=== PATIENT | female | born 1985 | race Caucasian/White ===

== ENCOUNTER 2018-10-18 04:43 | Emergency (ER) | payer MEDICAID, OTHER ==
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
[2018-10-18 06:01] VITALS: BP 116/72
== END 2018-10-18 06:03 | disposition home or self-care (01) ==
LOC: ED 04:43
DX: S20.211A Contusion of right front wall of thorax, initial encounter (principal); R07.81 Pleurodynia; R51 Headache; F17.210 Nicotine dependence, cigarettes, uncomplicated; Y04.2XXA Assault by strike against or bumped into by another person, initial encounter; Y92.9 Unspecified place or not applicable
CPT/HCPCS: 99282

== ENCOUNTER 2019-01-02 16:44 | Inpatient (IN) | payer OTHER ==
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
[2019-01-02 17:34] LABS: ABS Eosinophils 0.1 10^3/ul (0-0.6); ABS Lymphocytes 2.6 10^3/ul (1.0-4.8); ABS Monocytes 0.5 10^3/ul (0-0.8); ABS Neutrophils 4.2 10^3/ul (1.5-7.7); Eosinophil % 1.6 %; Hematocrit 45 % (35-47); Hemoglobin 15.9 g/dL (12.0-16.0); Lymphocyte % 34.5 %; Mean Corpuscular HGB Conc 35 g/dL (31-36); Mean Corpuscular Hemoglobin 31 pg (27-31); Mean Corpuscular Volume 89 fL (80-97); Mean Platelet Volume 8.1 fL (7.4-10.4); Platelet Count 208 10^3/uL (150-450); Red Blood Count 5.09 10^6 /uL (3.70-4.87); Red Cell Distribution Width 15 % (10-15); White Blood Count 7.4 10^3/uL (3.5-10.8)
[2019-01-02 17:48] LABS: ALT 24 U/L (7-52); AST 18 U/L (13-39); Albumin 4.3 g/dL (3.2-5.2); Albumin/Globulin Ratio 1.3 (1-3); Alkaline Phosphatase 61 U/L (34-104); Anion Gap 7 mmol/L (2-11); Blood Urea Nitrogen 7 mg/dL (6-24); CO2 Carbon Dioxide 27 mmol/L (22-32); Calcium 9.5 mg/dL (8.6-10.3); Chloride 107 mmol/L (101-111); EGFR Non-African American 73.6 (>60); Globulin 3.2 g/dL (2-4); Glucose 91 mg/dL (70-100); Potassium 3.5 mmol/L (3.5-5.0); Sodium 141 mmol/L (135-145); Total Protein 7.5 g/dL (6.4-8.9)
[2019-01-02 17:55] LABS: HCG Pregnancy < 0.60 mIU/mL
[2019-01-02 17:57] LABS: Urine Appearance Clear; Urine Bacteria Absent (Absent); Urine Bilirubin Negative (Negative); Urine Blood 2+ (Negative); Urine Color Yellow; Urine Glucose Negative (Negative); Urine Ketones Trace (Negative); Urine Nitrite Negative (Negative); Urine Protein Negative (Negative); Urine Red Blood Cell Trace(0-2/hpf) (Absent); Urine Specific Gravity 1.019 (1.010-1.030); Urine Squamous Epithelial Cell Present (Absent); Urine Urobilinogen Negative (Negative); Urine White Blood Cell Trace(0-5/hpf) (Absent)
[2019-01-02 18:03] LABS: Alcohol < 10 mg/dL (<10)
[2019-01-02 18:04] LABS: Urine Benzodiazepine Screen None Detected (None Detect); Urine Opiates Screen None Detected (None Detect)
[2019-01-02 21:09] LABS: HIV 4th Generation Nonreactive (Nonreactive)
[2019-01-02] MEDS ORDERED: Al Hydrox/Mg Hydrox/Simet LIQ* 30 ML UDC PO PRN (21:35)
[2019-01-02] MEDS ORDERED: diPHENhydraMINE PO* 50 MG PO PRN (21:43)
[2019-01-02] MEDS: Acetaminophen TAB* 325 MG PO PRN (22:47)
[2019-01-02] MEDS: chlorproMAZINE TAB* 25 MG PO PRN (22:49)
[2019-01-03] MEDS ORDERED: Vitamin THERAPEUTIC TAB ONE (05:32)
[2019-01-03] MEDS ORDERED: Nicotine PATCH 21 MG/24 HR* PATCH TRANSDERM SCH (09:00)
[2019-01-03] MEDS: Acetaminophen TAB* 325 MG PO PRN (09:04)
[2019-01-03 09:05] LABS: HDL Cholesterol 36.2 mg/dL
[2019-01-03] MEDS: Vitamin THERAPEUTIC TAB PO SCH (09:05)
[2019-01-03 09:17] VITALS: BP 125/72
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
[2019-01-03] MEDS: chlorproMAZINE TAB* 25 MG PO PRN (12:52)
[2019-01-03] MEDS: LORazepam TAB(*) 0.5 MG PO PRN (16:32)
[2019-01-03] MEDS ORDERED: LORazepam TAB(*) 1 MG PO SCH (21:00)
[2019-01-03] MEDS ORDERED: Nicotine Patch Removal NOTE PATCH OFF SCH (21:00)
[2019-01-04] MEDS: Acetaminophen TAB* 325 MG PO PRN (05:53)
[2019-01-04] MEDS: chlorproMAZINE TAB* 25 MG PO PRN (07:05)
[2019-01-04] MEDS: LORazepam TAB(*) 0.5 MG PO PRN ×2 (07:05→13:05)
[2019-01-04] MEDS ORDERED: chlorproMAZINE TAB* 50 MG ONE (07:20)
[2019-01-04] MEDS ORDERED: Lorazepam PYXIS KEY ONE (07:29)
[2019-01-04] MEDS ORDERED: LORazepam INJ* 2 MG/ML 1 ML VIAL ONE (07:29)
[2019-01-04] MEDS ORDERED: diPHENhydraMINE IV* 50 MG/ML 1 ml VIAL (BENADRYL) ONE ×2 (07:29→07:31)
[2019-01-04] MEDS ORDERED: chlorproMAZINE TAB* 50 MG PO ONE (07:30)
[2019-01-04] MEDS ORDERED: Lorazepam PYXIS KEY PRN (07:33)
[2019-01-04] MEDS ORDERED: diPHENhydraMINE IV* 50 MG/ML 1 ml VIAL (BENADRYL) IM ONE ×2 (07:35→08:00)
[2019-01-04] MEDS ORDERED: LORazepam INJ* 2 MG/ML 1 ML VIAL IM ONE (07:35)
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
[2019-01-04] MEDS: Nicotine* 2MG (FRUIT FLAVOR) GUM PO PRN ×2 (08:50→12:57)
[2019-01-04] MEDS ORDERED: BuPROPion XL* 150 MG TAB.XL PO SCH (09:00)
[2019-01-04] MEDS: Vitamin THERAPEUTIC TAB PO SCH (10:03)
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
[2019-01-05 15:08] LABS: Hepatitis B Surface Antigen Negative (Negative)
[2019-01-05 15:44] LABS: Hepatitis C Antibody Reactive (Negative)
== END 2019-01-04 13:25 | disposition home or self-care (01) | DRG 755 ==
LOC: ED 16:44 → BSU 22:06
PROVIDERS: ADMIT Psychiatry & Neurology Psychiatry; ATTEND Psychiatry & Neurology Psychiatry
DX: F43.10 Post-traumatic stress disorder, unspecified (principal); F33.2 Major depressive disorder, recurrent severe without psychotic features; R45.851 Suicidal ideations; F41.0 Panic disorder [episodic paroxysmal anxiety]; F14.21 Cocaine dependence, in remission; F12.21 Cannabis dependence, in remission; J45.909 Unspecified asthma, uncomplicated; B19.20 Unspecified viral hepatitis C without hepatic coma; Z62.813 Personal history of forced labor or sexual exploitation in childhood; Z81.8 Family history of other mental and behavioral disorders
CPT/HCPCS: 36415; 80053; 80061; 80307; 80320; 81003; 81015; 83036; 84702; 85025; 86803; 87086; 87340; 87389; 87522; 99222; 99238; 99285; A9270-GY; G0480; J1200; J2060

== ENCOUNTER 2019-02-05 08:07 | Emergency (ER) | payer OTHER ==
[2019-02-05 08:38] VITALS: BP 151/99
[2019-02-05] MEDS ORDERED: Acetaminophen TAB* 325 MG PO ONE (08:56)
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
== END 2019-02-05 08:46 | disposition left against medical advice (07) ==
LOC: ED 08:07
DX: T76.21XA Adult sexual abuse, suspected, initial encounter (principal); J45.909 Unspecified asthma, uncomplicated; F17.200 Nicotine dependence, unspecified, uncomplicated; Y92.003 Bedroom of unspecified non-institutional (private) residence as the place of occurrence of the external cause; Z88.8 Allergy status to other drugs, medicaments and biological substances
CPT/HCPCS: 99282; A9270-GY

== ENCOUNTER 2019-02-19 19:55 | Emergency (ER) | payer OTHER ==
[2019-02-19] MEDS ORDERED: Ondansetron INJ* 2 MG/ML VIAL IV ONE (19:59)
[2019-02-19] MEDS ORDERED: NS 0.9% 1000 ML** 1,000 ML IV ONE (19:59)
[2019-02-19] MEDS ORDERED: Albuterol 2.5 MG/3 ML NEB.SOL* (0.083%) INH ONE (19:59)
--- NOTE | 2019-02-19 20:02 | ED ---
Complex/Multi-Sys Presentation - HPI Summary HPI Summary: This pt is a 34 y/o female presenting to [facility] via EMS for nausea, vomiting, diarrhea, and dizziness today. Pt reports her symptoms began today. She notes she has been feeling chills, generalized weakness and dizziness (feeling of passing out). Pt states she has been vomiting all day and has had at least 5 episodes of diarrhea. Denies hematemesis or blood stools. Additionally reports she has a headache and a cough that began 3 days ago. Denies fever, sore throat , runny nose, dysuria, hematuria. Pt reports sick contacts, her friends. Pt took ibuprofen and Tylenol today with no relief. PMHx: asthma. Pt reports she does not have an inhaler. Pt denies drug and alcohol use but admits to smoking cigarettes. She is not currently working now. Allergic to Lamictal. Medications reviewed. Allergies noted. - History Of Current Complaint Hx Obtained From: Patient Onset/Duration: Lasting Hours, Still Present Timing: Hours Severity Currently: Moderate Location: Pain At: - head Aggravating Factor(s): nothing Alleviating Factor(s): nothing Associated Signs And Symptoms: Positive: Dizziness, Weakness, Headache, Cough, Nausea, Vomiting, Diarrhea, Other - POSITIVE: chills. NEGATIVE: hematuria, sore throat, runny nose.. Negative: Dysuria, Fever - Allergies/Home Medications Allergies/Adverse Reactions: Allergies Allergy/AdvReac Type Severity Reaction Status Date / Time haloperidol [From Haldol] Allergy Anaphylatic Verified 02/19/19 20:05 Shock lamotrigine [From Lamictal] Allergy Swelling Verified 02/19/19 20:05 Of Face,Lips,& Throat tomato Allergy GI Upset Verified 02/19/19 20:05 PMH/Surg Hx/FS Hx/Imm Hx Endocrine/Hematology History: Denies: Hx Diabetes Cardiovascular History: Denies: Hx Hypertension Respiratory History: Reports: Hx Asthma Sensory History: Reports: Hx Contacts or Glasses Denies: Hx Hearing Aid Opthamlomology History: Reports: Hx Contacts or Glasses Psychiatric History: Reports: Hx Inpatient Treatment, Hx Substance Abuse Denies: Hx Eating Disorder - Surgical History Surgical History: Yes Surgery Procedure, Year, and Place: 2 Ceasarean Sections. Cholecystectomy. - Family History Known Family History: Negative: Cardiac Disease - Social History Alcohol Use: None Alcohol Amount: clean for 7 years Hx Substance Use: Yes Substance Use Type: Reports: Marijuana Substance Use Comment - Amount & Last Used: clean for 7 years Hx Tobacco Use: Yes Smoking Status (MU): Heavy Every Day Tobacco Smoker Review of Systems Positive: Chills. Negative: Fever Negative: Sore Throat, Nasal Discharge Positive: Cough Positive: Vomiting, Diarrhea, Nausea Negative: dysuria, hematuria Neurological: Other - POSITIVE: dizziness Positive: Headache, Weakness All Other Systems Reviewed And Are Negative: Yes Physical Exam - Summary Physical Exam Summary: Constitutional: Well-developed, Well-nourished, Alert. (-) Distressed Skin: Warm, Dry HENT: Normocephalic; Atraumatic Eyes: Conjunctiva normal Neck: Musculoskeletal ROM normal neck. (-) JVD, (-) Stridor, (-) Tracheal deviation Cardio: Rhythm regular, rate normal, Heart sounds normal; Intact distal pulses; The pedal pulses are 2+ and symmetric. Radial pulses are 2+ and symmetric. (-) Murmur Pulmonary/Chest wall: Effort normal. (-) Respiratory distress, Wheezing in bilateral lung [place]. Good airway entry. Speaking in full sentences. Abd: Soft, Mild lower abdominal tenderness, (-) Distension, (-) Guarding, (-) Rebound Musculoskeletal: (-) Edema Lymph: (-) Cervical adenopathy Neuro: Alert, Oriented x3 Psych: Mood and affect Normal Triage Information Reviewed: Yes Vital Signs Reviewed: Yes Procedures - Sedation Patient Received Moderate/Deep Sedation with Procedure: No Diagnostics - Laboratory Result Diagrams: 02/19/19 20:14 02/19/19 20:14 Lab Statement: Any lab studies that have been ordered have been reviewed, and results considered in the medical decision making process. - Radiology Chest XR Radiology Interpretation Completed By: ED Physician Summary of Radiographic Findings: No acute process. Re-Evaluation - Re-Evaluation First Eval Re-Evaluation Time: 21:16 Change: Improved Comment: Pt is feeling better after breathing treatment. PO trial and then will be discharged. Complex Multi-Symp Course/Dx Course Of Treatment: Patient is here vomiting, diarrhea, cough with multiple sick contacts with her symptoms. Patient had a benign abdominal exam is overall well-appearing outside of wheezing. Patient was given a 4-year-old female with improvement in her wheezing. Patient had a CBC and CMP and lipase performed which were all unremarkable. Patient given IV fluids. Patient is discharged with an albuterol inhaler, Bentyl, Zofran. - Diagnoses Provider Diagnoses: Vomiting, Diarrhea, Wheezing, Cough Discharge ED - Sign-Out/Discharge Documenting (check all that apply): Patient Departure - Discharge home - Discharge Plan Condition: Stable Disposition: HOME Prescriptions: Albuterol HFA INHALER* [Ventolin HFA Inhaler*] 1 - 2 puff INH Q4H PRN #1 mdi PRN Reason: Wheezing Dicyclomine CAP* [Bentyl CAP*] 10 mg PO TID PRN #20 cap PRN Reason: abdominal cramping Ondansetron TAB* [Zofran 4 MG Tab*] 4 mg PO Q8HR PRN #12 tab PRN Reason: Vomiting Patient Education Materials: Acute Nausea and Vomiting (ED), Acute Diarrhea (ED ), Acute Cough (ED), Wheezing (ED) Referrals: [facility] [Outside] Additional Instructions: Take medications as prescribed. PLEASE RETURN TO EMERGENCY DEPARTMENT FOR SEVERE RIGHT LOWER ABDOMINAL PAIN, VOMITING THAT IS NOT BETTER AFTER 12 HOURS OF TAKING MEDICINE, AND IF YOU DON'T URINATE FOR 16 HOURS. Please follow up with [facility] in 1-3 days. - Billing Disposition and Condition Condition: STABLE Disposition: Home - Attestation Statements Document Initiated by Ashleigh: Yes Documenting Caydenibsalvador: Adri Oh Provider For Whom Ashleigh is Documenting (Include Credential): Arnoldo Murguia MD Scribe Attestation: Adri Avila, scribed for Arnoldo Murguia MD on 02/19/19 at 2123. Scribe Documentation Reviewed: Yes Provider Attestation: The documentation as recorded by the Adri torres accurately reflects the service I personally performed and the decisions made by , Arnoldo Murguia MD Status of Scribe Document: Viewed
[2019-02-19 20:27] LABS: ABS Eosinophils 0.1 10^3/ul (0-0.6); ABS Lymphocytes 2.6 10^3/ul (1.0-4.8); ABS Monocytes 0.5 10^3/ul (0-0.8); ABS Neutrophils 4.9 10^3/ul (1.5-7.7); Eosinophil % 1.8 %; Hematocrit 41 % (35-47); Hemoglobin 14.1 g/dL (12.0-16.0); Lymphocyte % 31.7 %; Mean Corpuscular HGB Conc 34 g/dL (31-36); Mean Corpuscular Hemoglobin 31 pg (27-31); Mean Corpuscular Volume 92 fL (80-97); Mean Platelet Volume 7.8 fL (7.4-10.4); Platelet Count 221 10^3/uL (150-450); Red Blood Count 4.49 10^6 /uL (3.70-4.87); Red Cell Distribution Width 13 % (10-15); White Blood Count 8.2 10^3/uL (3.5-10.8)
[2019-02-19 20:45] LABS: ALT 16 U/L (7-52); AST 15 U/L (13-39); Albumin 3.7 g/dL (3.2-5.2); Albumin/Globulin Ratio 1.3 (1-3); Alkaline Phosphatase 62 U/L (34-104); Anion Gap 6 mmol/L (2-11); BUN/Creatinine Ratio 9.1 (8-20); Blood Urea Nitrogen 8 mg/dL (6-24); CO2 Carbon Dioxide 27 mmol/L (22-32); Calcium 8.9 mg/dL (8.6-10.3); Chloride 107 mmol/L (101-111); EGFR African American 88.5 (>60); EGFR Non-African American 73.1 (>60); Globulin 2.8 g/dL (2-4); Glucose 150 mg/dL (70-100); Potassium 3.1 mmol/L (3.5-5.0); Sodium 140 mmol/L (135-145); Total Protein 6.5 g/dL (6.4-8.9)
[2019-02-19] MEDS ORDERED: Potassium Chlor TAB* 20 MEQ TAB.ER PO ONE (20:49)
[2019-02-19 20:51] LABS: HCG Pregnancy < 0.60 mIU/mL
[2019-02-19] MEDS ORDERED: Albuterol HFA INHALER* 8 gm MDI INH ONE (21:26)
[2019-02-19 21:35] VITALS: BP 108/62
== END 2019-02-19 21:32 | disposition home or self-care (01) ==
LOC: ED 19:55
DX: R11.10 Vomiting, unspecified (principal); R19.7 Diarrhea, unspecified; R42 Dizziness and giddiness; R06.2 Wheezing; R51 Headache; R05 Cough; F17.210 Nicotine dependence, cigarettes, uncomplicated
CPT/HCPCS: 36415; 71046; 80053; 83690; 84702; 85025; 96374; 99283; A9270-GY; J2405

== ENCOUNTER 2019-05-15 23:06 | Emergency (ER) | payer OTHER ==
--- NOTE | 2019-05-15 23:57 | ED ---
Upper Extremity Pain - HPI Summary HPI Summary: Patient complains of pain in right forearm and swelling to fingers status post surgery yesterday for right wrist fracture. Patient has cast in place. Surgery performed at [facility], secondary to fall. Patient denies new trauma, fever, cough, sore throat, CP, SOB, N/V/V abdominal pain, change in urine, change in BM. - History of Current Complaint Chief Complaint: EDGeneral Stated Complaint: SWOLLEN FINGERS PER EMS Time Seen by Provider: 05/15/19 23:22 Hx Obtained From: Patient Mechanism Of Injury: Fall From A Standing Position Onset/Duration: Started Hours Ago Timing: Constant Severity Initially: Moderate Severity Currently: Moderate Pain Location: Forearm Character: Dull, Aching, Throbbing Aggravating Factor(s): Movement Alleviating Factor(s): Nothing Associated Signs & Symptoms: Positive: Swelling, Numbness/Tingling - Allergies/Home Medications Allergies/Adverse Reactions: Allergies Allergy/AdvReac Type Severity Reaction Status Date / Time haloperidol [From Haldol] Allergy Anaphylatic Verified 02/19/19 20:05 Shock lamotrigine [From Lamictal] Allergy Swelling Verified 02/19/19 20:05 Of Face,Lips,& Throat tomato Allergy GI Upset Verified 02/19/19 20:05 PMH/Surg Hx/FS Hx/Imm Hx Endocrine/Hematology History: Denies: Hx Diabetes Cardiovascular History: Denies: Hx Hypertension Respiratory History: Reports: Hx Asthma Denies: Hx Chronic Obstructive Pulmonary Disease (COPD) History: Denies: Hx Dialysis Sensory History: Reports: Hx Contacts or Glasses Denies: Hx Hearing Aid Opthamlomology History: Reports: Hx Contacts or Glasses EENT History: Denies: Hx Deafness Neurological History: Denies: Hx Dementia Psychiatric History: Reports: Hx Inpatient Treatment, Hx Substance Abuse Denies: Hx Eating Disorder - Surgical History Surgery Procedure, Year, and Place: 2 Ceasarean Sections. Cholecystectomy. Infectious Disease History: No Infectious Disease History: Denies: Traveled Outside the [place] in Last 30 Days - Family History Known Family History: Negative: Cardiac Disease - Social History Alcohol Use: None Alcohol Amount: clean for 7 years Hx Substance Use: Yes Substance Use Type: Reports: Marijuana Substance Use Comment - Amount & Last Used: clean for 7 years Hx Tobacco Use: Yes Smoking Status (MU): Heavy Every Day Tobacco Smoker Review of Systems Constitutional: Negative Eyes: Negative ENT: Negative Cardiovascular: Negative Respiratory: Negative Gastrointestinal: Negative Genitourinary: Negative Musculoskeletal: Other Skin: Negative Neurological: Negative Psychological: Normal All Other Systems Reviewed And Are Negative: Yes Physical Exam - Summary Physical Exam Summary: Fingers are swollen with some mild ecchymosis noted. Cap refill immediate. Sensation intact. Hand is warm. Sugar tong splint in place. Triage Information Reviewed: Yes Vital Signs On Initial Exam: Initial Vitals Temp Pulse Resp BP Pulse Ox 98.3 F 82 20 159/97 96 05/15/19 23:08 05/15/19 23:08 05/15/19 23:08 05/15/19 23:08 05/15/19 23:08 Vital Signs Reviewed: Yes Appearance: Positive: Well-Appearing Skin: Positive: Warm Head/Face: Positive: Normal Head/Face Inspection Eyes: Positive: Normal Neck: Positive: Supple Respiratory/Lung Sounds: Positive: Clear to Auscultation Cardiovascular: Positive: Normal Abdomen Description: Positive: Nontender Musculoskeletal: Positive: Normal Neurological: Positive: Normal Psychiatric: Positive: Normal AVPU Assessment: Alert - Barb Coma Scale Best Eye Response: 4 - Spontaneous Best Motor Response: 6 - Obeys Commands Best Verbal Response: 5 - Oriented Coma Scale Total: 15 Procedures - Sedation Patient Received Moderate/Deep Sedation with Procedure: No Diagnostics - Vital Signs Vital Signs Temp Pulse Resp BP Pulse Ox 05/15/19 23:08 98.3 F 82 20 159/97 96 - Laboratory Lab Statement: Any lab studies that have been ordered have been reviewed, and results considered in the medical decision making process. Course/Dx - Course Course Of Treatment: Patient complains of pain in right forearm and swelling to fingers status post surgery yesterday for right wrist fracture. Patient has cast in place. Surgery performed at [facility], secondary to fall. Patient denies new trauma, fever, cough, sore throat, CP, SOB, N/V/V abdominal pain, change in urine, change in BM. Vital signs within normal limits. Patient arm propped up to facilitate draining. Ice placed on fingers. John wrap of splint removed. Gauze dressing over splint left in place. Patient states symptoms have improved on reevaluation. Patient advised to continue to keep arm elevated and follow-up with surgeon at [facility]. - Diagnoses Provider Diagnoses: Post-operative pain Discharge ED - Sign-Out/Discharge Documenting (check all that apply): Patient Departure - Discharge Plan Condition: Stable Disposition: HOME Patient Education Materials: Wrist Injury (ED) Referrals: No Primary Care Phys,NOPCP [Primary Care Provider] - Additional Instructions: Alternate ibuprofen 600 mg with Tylenol 650 mg every 3 hours for pain. Keep arm elevated to help prevent swelling. Follow-up with your orthopedic surgeon. Return to the ED for any new or worsening symptoms. - Billing Disposition and Condition Condition: STABLE Disposition: Home
--- OUTSIDE RECORDS SUMMARY | 2019-05-15 23:59 | XMS REPORT ---
:1985 Author Organization [facility] Care Team Providers Name Role Phone Aleksandra Forte Primary Care Physician Unavailable Allergies, Adverse Reactions, Alerts Allergy Code CodeSystem Reaction Severity Criticality Status Start Substance Date Moderate Medications Medication Medication Medication Start Stop Route Dose Status Fill Code CodeSystem Date Date Instructions RxNorm Problems Problem Name Code CodeSystem Alternate Alternate Start End Status Narrative Code CodeSystem Date Date Recurrent 56242208 SNOMED-CT 2018- Active depressive 9-05 disorder, current episode moderate Relevant diagnostic tests/laboratory data Narrative No Information Procedures Procedure Code CodeSystem Target Date of Status Service Device Device Device Name Site Procedure Delivery Code Name UID Location Psychother [id number] SNOMED-CT () 2019-02-24 completed Mental apy, 45 4 Health- minutes [place] with [address], [id number] [id number] Psychother [id number] SNOMED-CT () 2019-01-07 completed Mental apy, 45 4 Health- minutes [place] with [address], [id number] [id number] Psychother [id number] SNOMED-CT () 2019-01-14 completed Mental apy, 45 4 Health- minutes [place] with [address], [id number] [id number] SNOMED-CT () 2019-03-05 completed Mental Health- [address], [id number] SNOMED-CT () 2019-01-01 completed Mental Health[address], [id number] [id number] SNOMED-CT () 2019-01-02 [facility], [id number] [id number] Encounters/Encounter Diagnoses Encounter Name Encounter Diagnosis Diagnosis Diagnosis Date of Service Code Code Name CodeSystem Diagnosis Delivery Location [facility] [id number] Recurrent SNOMED-CT 2019-03-23 Behavioral Individual 30 depressive Health min disorder, Clinic , , current , episode moderate Vital Signs No Information Social History Element Description Description Start End Code CodeSystem AdditionalInfo Date Date SexAssignedAtBirth Female F AdministrativeGender 01-23 Hospital Discharge Instructions Reason For Referral Medical Equipment FDA Assessments
--- OUTSIDE RECORDS SUMMARY | 2019-05-15 23:59 | XMS REPORT ---
:1985 Author Organization [facility] Care Team Providers Name Role Phone Aleksandra Forte Primary Care Physician Unavailable Allergies, Adverse Reactions, Alerts Allergy Code CodeSystem Reaction Severity Criticality Status Start Substance Date Moderate Medications Medication Medication Medication Start Stop Route Dose Status Fill Code CodeSystem Date Date Instructions RxNorm Problems Problem Name Code CodeSystem Alternate Alternate Start End Status Narrative Code CodeSystem Date Date Recurrent [id number] SNOMED-CT Active depressive 9-05 disorder, current episode moderate Relevant diagnostic tests/laboratory data Narrative No Information Procedures Procedure Code CodeSystem Target Date of Status Service Device Device Device Name Site Procedure Delivery Code Name UID Location Psychother [id number] SNOMED-CT () 2019-02-24 completed Mental apy, 45 4 Health- minutes [place] with [address], [phone] [phone] Psychother [id number] SNOMED-CT () 2019-03-23 completed Mental apy, 45 4 Health- minutes [place] with [address], [id number] [id number] Psychother [id number] SNOMED-CT () 2019-01-07 completed Mental apy, 45 4 Health- minutes [place] with [facility] patient [address] [place] [address], [id number] [id number] Psychother [id number] SNOMED-CT () 2019-01-14 completed Mental apy, 45 4 Health- minutes [place] with [address], [id number] [phone] SNOMED-CT () 2019-03-05 completed Mental Health- [place] [address], [phone] SNOMED-CT () 2019-01-01 completed [facility]- [place] [address], [phone] [phone] SNOMED-CT () 2019-01-02 completed Mental Health- [address], [phone] Encounters/Encounter Diagnoses Encounter Encounter Diagnosis Diagnosis Diagnosis Date of Service Name Code Code Name CodeSystem Diagnosis Delivery Location Initial [id number] Recurrent SNOMED-CT 2019-04-02 Behavioral Assessment depressive Health Diagnostic & disorder, Clinic , , Treatment current , Plan w/ episode Medical moderate Services Vital Signs No Information Social History Element Description Description Start End Code CodeSystem AdditionalInfo Date Date SexAssignedAtBirth Female F AdministrativeGender 01-23 Hospital Discharge Instructions Reason For Referral Medical Equipment FDA Assessments
[2019-05-16] MEDS ORDERED: Acetaminophen TAB* 325 MG PO ONE (00:56)
[2019-05-16 01:15] VITALS: BP 132/88
== END 2019-05-16 01:14 | disposition home or self-care (01) ==
LOC: ED 23:06
DX: M79.631 Pain in right forearm (principal); G89.18 Other acute postprocedural pain; M79.89 Other specified soft tissue disorders; R20.0 Anesthesia of skin; R20.2 Paresthesia of skin; Z88.8 Allergy status to other drugs, medicaments and biological substances; Z91.018 Allergy to other foods; F17.200 Nicotine dependence, unspecified, uncomplicated
CPT/HCPCS: 99282; A9270-GY

== ENCOUNTER 2019-05-23 08:04 | Emergency (ER) | payer MEDICAID, OTHER ==
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
[2019-05-23 08:47] LABS: Urine Appearance Clear; Urine Bilirubin Negative (Negative); Urine Blood Negative (Negative); Urine Color Yellow; Urine Glucose Negative (Negative); Urine Ketones Negative (Negative); Urine Nitrite Negative (Negative); Urine Protein Negative (Negative); Urine Specific Gravity 1.005 (1.010-1.030); Urine Urobilinogen Negative (Negative)
[2019-05-23 09:04] LABS: Urine Benzodiazepine Screen None Detected (None Detect); Urine Opiates Screen None Detected (None Detect)
[2019-05-23 09:29] LABS: ABS Eosinophils 0.3 10^3/ul (0-0.6); ABS Lymphocytes 2.3 10^3/ul (1.0-4.8); ABS Monocytes 0.6 10^3/ul (0-0.8); ABS Neutrophils 3.2 10^3/ul (1.5-7.7); Eosinophil % 4.5 %; Hematocrit 44 % (35-47); Hemoglobin 14.9 g/dL (12.0-16.0); Lymphocyte % 35.9 %; Mean Corpuscular HGB Conc 34 g/dL (31-36); Mean Corpuscular Hemoglobin 30 pg (27-31); Mean Corpuscular Volume 88 fL (80-97); Mean Platelet Volume 7.8 fL (7.4-10.4); Platelet Count 258 10^3/uL (150-450); Red Blood Count 4.96 10^6 /uL (3.70-4.87); Red Cell Distribution Width 14 % (10-15); White Blood Count 6.3 10^3/uL (3.5-10.8)
[2019-05-23 09:48] LABS: ALT 20 U/L (7-52); AST 17 U/L (13-39); Albumin 4.4 g/dL (3.2-5.2); Albumin/Globulin Ratio 1.3 (1-3); Alkaline Phosphatase 72 U/L (34-104); Anion Gap 7 mmol/L (2-11); Blood Urea Nitrogen 6 mg/dL (6-24); CO2 Carbon Dioxide 26 mmol/L (22-32); Calcium 9.5 mg/dL (8.6-10.3); Chloride 106 mmol/L (101-111); EGFR African American 90.9 (>60); EGFR Non-African American 75.1 (>60); Globulin 3.3 g/dL (2-4); Glucose 90 mg/dL (70-100); Potassium 3.8 mmol/L (3.5-5.0); Sodium 139 mmol/L (135-145); Total Protein 7.7 g/dL (6.4-8.9)
[2019-05-23] MEDS ORDERED: hydrOXYzine HCL TAB* 50 MG PO ONE (09:50)
[2019-05-23 09:53] LABS: Acetaminophen < 15 mcg/mL; Alcohol < 10 mg/dL (<10); Salicylate < 2.50 mg/dL (<30)
[2019-05-23 09:54] LABS: HCG Pregnancy 0.71 mIU/mL
[2019-05-23 10:07] LABS: TSH (Thyroid Stimulating Horm) 1.08 mcIU/mL (0.34-5.60)
[2019-05-23 10:36] VITALS: BP 00/00
== END 2019-05-23 10:35 | disposition home or self-care (01) ==
LOC: ED 08:04
DX: F43.20 Adjustment disorder, unspecified (principal); J45.909 Unspecified asthma, uncomplicated; F17.200 Nicotine dependence, unspecified, uncomplicated; Z79.899 Other long term (current) drug therapy; Z88.8 Allergy status to other drugs, medicaments and biological substances
CPT/HCPCS: 36415; 80053; 80307; 80320; 80329; 81003; 84443; 84702; 85025; 99284; G0480

== ENCOUNTER 2019-06-11 13:41 | Inpatient (IN) | payer MEDICAID ==
--- NOTE | 2019-06-11 14:08 | ED ---
Psychiatric Complaint - HPI Summary HPI Summary: 34 year old F arriving via bus complains of suicidal ideation x2 days. Hx suicidal ideation. Hx suicidal attempt. She states she has swallowed razor in the past. Hx psychiatric admission. Patient recently released from [facility]. Friend suggested patient be seen in the ED today. Patient denies fever, chills, erythema of eyes, sore throat, chest pain, shortness of breath, cough, abdominal pain, nausea/vomiting, dysuria, hematuria, myalgia, edema, rash, dizziness, auditory or visual hallucinations. Denies drugs or alcohol today. Medications reviewed. Allergies reviewed. - History Of Current Complaint Chief Complaint: EDMentalHealth Time Seen by Provider: 06/11/19 13:59 Hx Obtained From: Patient Onset/Duration: Lasting Days - 2, Still Present Timing: Constant Associated Signs And Symptoms: Positive: Negative - fever, chills, erythema of eyes, sore throat, chest pain, shortness of breath, cough, abdominal pain, nausea/vomiting, dysuria, hematuria, myalgia, edema, rash, dizziness, auditory or visual hallucinations Related History: Positive For: Prior Psychiatric Issues Has Suicidal: Reports: Thoughts - Allergies/Home Medications Allergies/Adverse Reactions: Allergies Allergy/AdvReac Type Severity Reaction Status Date / Time tomato Allergy Severe Anaphylatic Verified 06/11/19 13:47 Shock haloperidol [From Haldol] Allergy Anaphylatic Verified 06/11/19 13:47 Shock lamotrigine [From Lamictal] Allergy Swelling Verified 06/11/19 13:47 Of Face,Lips,& Throat adhesive tape AdvReac Rash And Verified 06/11/19 13:47 Itching PMH/Surg Hx/FS Hx/Imm Hx Endocrine/Hematology History: Denies: Hx Diabetes Cardiovascular History: Denies: Hx Hypertension Respiratory History: Reports: Hx Asthma Denies: Hx Chronic Obstructive Pulmonary Disease (COPD) History: Denies: Hx Dialysis Sensory History: Reports: Hx Contacts or Glasses Denies: Hx Deafness, Hx Hearing Aid Opthamlomology History: Reports: Hx Contacts or Glasses Neurological History: Denies: Hx Dementia Psychiatric History: Reports: Hx Depression, Hx Inpatient Treatment, Hx Suicide Attempt, Hx Substance Abuse - Surgical History Surgery Procedure, Year, and Place: 2 Ceasarean Sections. Cholecystectomy. - Immunization History Date of Influenza Vaccine: none Infectious Disease History: No Infectious Disease History: Denies: Traveled Outside the [place] in Last 30 Days - Family History Known Family History: Negative: Cardiac Disease - Social History Alcohol Use: None Alcohol Amount: sober Hx Substance Use: Yes Substance Use Comment - Amount & Last Used: sober Hx Tobacco Use: Yes Smoking Status (MU): Heavy Every Day Tobacco Smoker Review of Systems Negative: Fever, Chills Negative: Erythema Negative: Sore Throat Negative: Chest Pain Negative: Shortness Of Breath, Cough Negative: Abdominal Pain, Vomiting, Nausea Negative: dysuria, hematuria Negative: Myalgia, Edema Negative: Rash Neurological/Mental Status: Negative - Dizziness Positive: Other - SI; NEG: auditory or visual hallucinations All Other Systems Reviewed And Are Negative: Yes Physical Exam - Summary Physical Exam Summary: Constitutional: Well-developed, Well-nourished, Alert. (-) Distressed Skin: Warm, Dry HENT: Normocephalic; Atraumatic Eyes: Conjunctiva normal Neck: Musculoskeletal ROM normal neck. (-) JVD, (-) Stridor, (-) Tracheal deviation Cardio: Rhythm regular, rate normal, Heart sounds normal; Intact distal pulses; The pedal pulses are 2+ and symmetric. Radial pulses are 2+ and symmetric. (-) Murmur Pulmonary/Chest wall: Effort normal. (-) Respiratory distress, (-) Wheezes, (-) Rales Abd: Soft, (-) tenderness, (-) Distension, (-) Guarding, (-) Rebound Musculoskeletal: (-) Edema Lymph: (-) Cervical adenopathy Neuro: Alert, Oriented x3 Psych: Flat affect Triage Information Reviewed: Yes Vital Signs On Initial Exam: Initial Vitals Temp Pulse Resp BP Pulse Ox 96.9 F 78 18 118/84 99 06/11/19 13:43 06/11/19 13:43 06/11/19 13:43 06/11/19 13:43 06/11/19 13:43 Vital Signs Reviewed: Yes Procedures - Sedation Patient Received Moderate/Deep Sedation with Procedure: No Diagnostics - Vital Signs Vital Signs Temp Pulse Resp BP Pulse Ox 06/11/19 13:43 96.9 F 78 18 118/84 99 - Laboratory Result Diagrams: 06/11/19 14:06 06/11/19 14:06 Lab Statement: Any lab studies that have been ordered have been reviewed, and results considered in the medical decision making process. Re-Evaluation - Re-Evaluation First Eval Re-Evaluation Time: 14:15 Comment: patient is medically cleared for psychiatric evaluation Course/Dx - Course Course Of Treatment: 34 y/o F with psychiatrc hx presents with suicidal ideation x2 days. Upon physical exam, the patient has flat affect. Bloodwork results with no significant abnormalities. Urinalysis results with no significant abnormalities except for blood 3+, trace leukocyte esterase, WBC 1+ , RBC 3+. Toxicology results with no significant abnormalities except for lithium <0.10. Patient placed on Q15 observation. The patient will be signed out to Dr. Doll upon shift change 06/11/2019 2200 awaiting psychiatric evaluation and pending disposition. - Differential Dx/Clinical Impression Provider Diagnosis: Depression Discharge ED - Sign-Out/Discharge Documenting (check all that apply): Sign-Out Patient Signing out patient TO: Girma Doll - awaiting MHE and pending disposition - Discharge Plan Referrals: No Primary Care Phys,NOPCP [Primary Care Provider] - - Attestation Statements Document Initiated by Scribe: Yes Documenting Scribe: Nicole Vasquez Provider For Whom Scribe is Documenting (Include Credential): Dickson Cano MD Scribe Attestation: Nicole Avila, scribed for Dickson Cano MD on 06/11/19 at 9543. Status of Scribe Document: Ready
[2019-06-11 14:15] LABS: ABS Eosinophils 0.3 10^3/ul (0-0.6); ABS Lymphocytes 2.2 10^3/ul (1.0-4.8); ABS Monocytes 0.4 10^3/ul (0-0.8); ABS Neutrophils 4.9 10^3/ul (1.5-7.7); Eosinophil % 3.3 %; Hematocrit 39 % (35-47); Hemoglobin 13.4 g/dL (12.0-16.0); Lymphocyte % 28.4 %; Mean Corpuscular HGB Conc 34 g/dL (31-36); Mean Corpuscular Hemoglobin 30 pg (27-31); Mean Corpuscular Volume 89 fL (80-97); Mean Platelet Volume 7.1 fL (7.4-10.4); Platelet Count 260 10^3/uL (150-450); Red Blood Count 4.41 10^6 /uL (3.70-4.87); Red Cell Distribution Width 14 % (10-15); White Blood Count 7.9 10^3/uL (3.5-10.8)
[2019-06-11 14:26] LABS: Urine Appearance Clear; Urine Bilirubin Negative (Negative); Urine Blood 3+ (Negative); Urine Color Yellow; Urine Glucose Negative (Negative); Urine Ketones Negative (Negative); Urine Nitrite Negative (Negative); Urine Protein Negative (Negative); Urine Specific Gravity 1.006 (1.010-1.030); Urine Urobilinogen Negative (Negative)
[2019-06-11 14:29] LABS: Urine Bacteria Absent (Absent); Urine Red Blood Cell 3+(>10/hpf) (Absent); Urine Squamous Epithelial Cell Present (Absent); Urine White Blood Cell 1+(6-10/hpf) (Absent)
[2019-06-11 14:32] LABS: ALT 36 U/L (7-52); AST 18 U/L (13-39); Albumin 4.1 g/dL (3.2-5.2); Albumin/Globulin Ratio 1.3 (1-3); Alkaline Phosphatase 68 U/L (34-104); Anion Gap 5 mmol/L (2-11); BUN/Creatinine Ratio 10.5 (8-20); Blood Urea Nitrogen 9 mg/dL (6-24); CO2 Carbon Dioxide 27 mmol/L (22-32); Calcium 9.1 mg/dL (8.6-10.3); Chloride 108 mmol/L (101-111); EGFR African American 90.9 (>60); EGFR Non-African American 75.1 (>60); Globulin 3.2 g/dL (2-4); Glucose 93 mg/dL (70-100); Potassium 3.8 mmol/L (3.5-5.0); Sodium 140 mmol/L (135-145); Total Protein 7.3 g/dL (6.4-8.9)
[2019-06-11 14:54] LABS: Acetaminophen < 15 mcg/mL; Alcohol < 10 mg/dL (<10); Lithium < 0.10 mmol/L (0.6-1.2); Salicylate < 2.50 mg/dL (<30)
[2019-06-11 14:54] LABS: Urine Benzodiazepine Screen None Detected (None Detect); Urine Opiates Screen None Detected (None Detect)
[2019-06-11 15:06] LABS: TSH (Thyroid Stimulating Horm) 2.32 mcIU/mL (0.34-5.60)
--- NOTE | 2019-06-11 23:41 | ED ---
Progress - Progress Note Progress Note: The patient is a sign-out from Dr. Dickson Cano MD, to Dr. Girma Doll MD, at change of shift at 2200 on 06/11/19, pending psychiatric evaluation and disposition. Dr. Dave and mental health staff have evaluated the patient and determined that she is appropriate for admission at this time. Patient agreeable with this plan. Re-Evaluation - Re-Evaluation First Eval Re-Evaluation Time: 14:15 Comment: patient is medically cleared for psychiatric evaluation Course/Dx - Course Course Of Treatment: The patient is a sign-out from Dr. Dickson Cano MD, to Dr. Girma Doll MD, at change of shift at 2200 on 06/11/19, pending psychiatric evaluation and disposition. Dr. Dave and mental health staff have evaluated the patient and determined that she is appropriate for admission at this time. Patient agreeable with this plan. - Diagnoses Provider Diagnoses: Depressive disorder - Provider Notifications Discussed Care Of Patient With: [place] Dave - psychiatry Time Discussed With Above Provider: 03:00 Instructed by Provider To: Other - Dr. Dave and mental health staff determined patient requires admission. Discharge ED - Sign-Out/Discharge Documenting (check all that apply): Patient Departure - Patient admitted to [facility] psychiatric unit by Dr. Dave., Receiving Sign-Out Receiving patient FROM: Dickson Cano - Patient is a sign-out from Dr. Dickson Cano MD, at change of shift at 2200 on 06/11/19, pending MHE and disposition. - Discharge Plan Condition: Stable Disposition: PSYCHIATRIC FACILITY-[facility] Referrals: No Primary Care Phys,NOPCP [Primary Care Provider] - - Billing Disposition and Condition Condition: STABLE Disposition: Psychiatric Facility [facility] - Attestation Statements Document Initiated by Scribe: Yes Documenting Scribe: Brittany Carson Provider For Whom Ashleigh is Documenting (Include Credential): Dr. Girma Doll MD Scribe Attestation: Brittany Avila scribed for Dr. Girma Doll MD on 06/12/19 at 0456. Scribe Documentation Reviewed: Yes Provider Attestation: The documentation as recorded by the Brittany torres accurately reflects the service I personally performed and the decisions made by me, Dr. Girma Doll MD Status of Scribe Document: Viewed Procedures - Sedation Patient Received Moderate/Deep Sedation with Procedure: No
[2019-06-12] MEDS ORDERED: LORazepam TAB(*) 1 MG PO ONE (10:59)
[2019-06-12] MEDS ORDERED: Al Hydrox/Mg Hydrox/Simet LIQ* 30 ML UDC PO PRN (11:24)
[2019-06-12] MEDS ORDERED: Albuterol HFA INHALER* 8 gm MDI INH PRN ×2 (11:25→13:05)
[2019-06-12] MEDS ORDERED: Ondansetron TAB* 4 MG PO PRN (11:25)
[2019-06-12] MEDS ORDERED: chlorproMAZINE TAB* 100 MG PO PRN (11:28)
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
[2019-06-12] MEDS: Lithium Carbonate TAB* 300 MG PO SCH ×3 (12:42→20:21)
[2019-06-12] MEDS: Gabapentin CAP(*) 300 MG PO SCH ×3 (12:42→20:21)
[2019-06-12] MEDS: Venlafaxine EXT RELEASE CAP* 75 MG PO SCH (12:42)
[2019-06-12] MEDS: chlorproMAZINE TAB* 50 MG PO SCH ×3 (12:42→20:20)
[2019-06-12] MEDS ORDERED: Simethicone TAB* 80 MG TAB.CHEW PO PRN (13:13)
[2019-06-12] MEDS ORDERED: Oral Rinse (Biotene)(NF) 237 ML or 473 ML ORAL RINSE BTL MT PRN (13:15)
[2019-06-12] MEDS ORDERED: Ondansetron ODT TAB* 4 MG PO PRN (13:17)
[2019-06-12 13:42] VITALS: BP 133/78
[2019-06-12] MEDS ORDERED: Ibuprofen TAB* 800 MG PO SCH (14:00)
[2019-06-12] MEDS: QUEtiapine TAB* 100 MG PO SCH (18:19)
[2019-06-13] MEDS ORDERED: Ondansetron ODT TAB* 4 MG PO PRN (02:00)
[2019-06-13] MEDS ORDERED: BuPROPion XL* 150 MG TAB.XL PO ONE (06:23)
[2019-06-13] MEDS ORDERED: chlorproMAZINE TAB* 50 MG ONE (06:24)
[2019-06-13] MEDS: Lithium Carbonate TAB* 300 MG PO SCH ×3 (08:27→21:19)
[2019-06-13] MEDS: BuPROPion XL* 150 MG TAB.XL PO SCH (08:27)
[2019-06-13] MEDS: Gabapentin CAP(*) 300 MG PO SCH ×4 (08:28→21:19)
[2019-06-13] MEDS: Venlafaxine EXT RELEASE CAP* 75 MG PO SCH (08:28)
[2019-06-13] MEDS: chlorproMAZINE TAB* 100 MG PO SCH (08:28)
[2019-06-13] MEDS ORDERED: chlorproMAZINE TAB* 50 MG PO SCH (09:00)
[2019-06-13] MEDS: chlorproMAZINE TAB* 50 MG PO SCH ×2 (13:08→18:15)
[2019-06-13] MEDS: QUEtiapine TAB* 100 MG PO SCH ×2 (18:15→21:20)
[2019-06-14] MEDS: BuPROPion XL* 150 MG TAB.XL PO SCH (07:35)
[2019-06-14] MEDS: chlorproMAZINE TAB* 100 MG PO SCH (07:35)
[2019-06-14] MEDS: Gabapentin CAP(*) 300 MG PO SCH ×3 (07:36→18:24)
[2019-06-14] MEDS: Lithium Carbonate TAB* 300 MG PO SCH ×2 (07:36→18:24)
[2019-06-14] MEDS: Venlafaxine EXT RELEASE CAP* 75 MG PO SCH (07:36)
[2019-06-14] MEDS: Acetaminophen TAB* 325 MG PO PRN (13:38)
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
[2019-06-14] MEDS: LORazepam TAB(*) 1 MG PO PRN (15:09)
[2019-06-14] MEDS: chlorproMAZINE TAB* 50 MG PO SCH ×2 (15:15→18:24)
[2019-06-14] MEDS: QUEtiapine TAB* 100 MG PO SCH (18:24)
[2019-06-15] MEDS: LORazepam TAB(*) 1 MG PO PRN (08:44)
[2019-06-15] MEDS: Venlafaxine EXT RELEASE CAP* 75 MG PO SCH (08:45)
[2019-06-15] MEDS: BuPROPion XL* 150 MG TAB.XL PO SCH (08:45)
[2019-06-15] MEDS: Gabapentin CAP(*) 300 MG PO SCH ×3 (08:45→18:44)
[2019-06-15] MEDS: Lithium Carbonate TAB* 300 MG PO SCH ×2 (08:45→18:45)
[2019-06-15] MEDS: chlorproMAZINE TAB* 100 MG PO SCH ×2 (08:45→18:45)
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
--- NOTE | 2019-06-15 11:06 | PN ---
BSU: Group Therapy Note - Service Type Service Type: 40310 Group Psychotherapy - Cognitive Behavioral Group Therapy ( CBT):Patient was attentive and participatory in CBT programming this morning, and remained in good behavioral control. Patient expressed positive insights regarding relevant treatment interventions and goals.
--- NOTE | 2019-06-15 12:06 | PN ---
Subjective - Subjective Date of Service: 06/15/19 Service Type: 98284 Hosp care 35 min high complexity Subjective: Nursing Report: Patient was visible on unit, no behavioral incidents. Slept overnight. CC: "What about a [facility]ORGE program? Patient was seen and evaluated today. The patient reported she feels safe on the unit and is interacting with peers and expresses interest in going to a [facility] program because she needs housing. It was explained to the patient that reasons for GEORGE program can not be for only housing. She reported having adequate appetite and sleep. Per nursing no behavioral issues or overnight events reported. Patient reported that she is tolerating medications without side effects. Objective - General Observations Appearance: Neat Appears Stated Age: Yes Stature: Overweight Posture: Slumped Eye Contact: Average Behavior/Activity: Accelerated - Interaction Observations Attitude Towards Examiner: Defensive Stated Mood: Dysphoric, Irritable Affect: Restricted Speech Pattern/Tone: Normal Volume Thought Process: Coherent Perception: WNL Thought Content: WNL Hallucination Type: Denies Delusion Type: Denies - Cognitive Function Orientation: A&O x 4 Level of Consciousness: Awake - Medication Compliance Cooperative with Inpatient Medication Regimen: Yes - Group Participation Participates in Group Activities: Partial Assessment - Assessment Merits Inpatient Hospitalization: For Immediate Safety 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 Plan - Plan Treatment Plan: Name: JARRELL CASTELLANOS Birthdate: 1985 [id number] #Q30 minute observation. # The patient requires psychiatric inpatient admission at this time to assure safety, receive treatment and work toward stabilization. # EKG ordered for risk of QT prolongation of antipsychotic medication. QTc 436 # B-HCG was ordered and results are negative. # Use of 2 Anti Psychotics due to more than 3 failed trials of mono-therapy in the past. # Obtain collateral information once release is signed. # [facility]OR[facility] program # Trauma focused CBT # Collaboration with Collection Manager Mariluz Tijerina # [place] level Saturday # Thorazine 50mg qam and 100mg at 6pm Tobacco use disorder: nicotine supplement offered and put in place. #Goals before discharge include: Tentative Discharge: Pending psychiatric stabilization Continued Medication Management: Continue Outpt Medication Medications: Current Medications Acetaminophen (Tylenol Tab*) 650 mg PO Q4H PRN PRN Reason: for pain; or Temp >101 F Last Admin: 06/14/19 13:38 Dose: 650 mg Al Hydrox/Mg Hydrox/Simethicone (Maalox Plus*) 30 ml PO Q4H PRN PRN Reason: INDIGESTION Albuterol (Ventolin Hfa Inhaler*) 2 puff INH Q4H PRN PRN Reason: WHEEZING Bupropion HCl (Wellbutrin Xl *) 150 mg PO DAILY [facility] Last Admin: 06/15/19 08:45 Dose: 150 mg Chlorpromazine HCl (Thorazine Tab*) 100 mg PO Q6H PRN PRN Reason: AGITATION Chlorpromazine HCl (Thorazine Tab*) 100 mg PO 1800 [facility] Diphenhydramine HCl (Benadryl Po*) 50 mg PO Q6H PRN PRN Reason: AGITATION Gabapentin (Neurontin Cap(*)) 600 mg PO 0900,1400,1900 [facility] Last Admin: 06/15/19 08:45 Dose: 600 mg [place] Carbonate ([place] Carbonate Tab*) 300 mg PO 0900,1900 [facility] Last Admin: 06/15/19 08:45 Dose: 300 mg Multi-Ingredient Mouthwash/Gargle (Biotene Dry Mouth Oral Rinse(Nf)) 15 ml MT FIVE TIMES DAILY PRN PRN Reason: DRY MOUTH Nicotine Polacrilex (Nicotine Gum*) 4 mg PO Q2H PRN PRN Reason: CRAVINGS Ondansetron HCl (Zofran Odt Tab*) 4 mg PO Q6H PRN PRN Reason: VOMITING Quetiapine Fumarate (Seroquel Tab*) 200 mg PO 1900 [facility] Last Admin: 06/14/19 18:24 Dose: 200 mg Simethicone (Mylicon Tab*) 80 mg PO Q6H PRN PRN Reason: INDIGESTION Venlafaxine HCl (Effexor Xr Cap*) 75 mg PO DAILY [facility]; Protocol - Discharge Plan Discharge Plan: Inpatient Hospitalization
[2019-06-15] MEDS: diPHENhydraMINE PO* 50 MG PO PRN (16:42)
[2019-06-15] MEDS ORDERED: chlorproMAZINE TAB* 100 MG ONE (16:48)
[2019-06-15] MEDS ORDERED: LORazepam TAB(*) 1 MG ONE (16:48)
[2019-06-15] MEDS ORDERED: LORazepam TAB(*) 1 MG PO ONE (17:30)
[2019-06-15] MEDS ORDERED: chlorproMAZINE TAB* 100 MG PO SCH (18:00)
[2019-06-15] MEDS: QUEtiapine TAB* 100 MG PO SCH (18:45)
[2019-06-15] MEDS ORDERED: diPHENhydraMINE IV* 50 MG/ML 1 ml VIAL (BENADRYL) ONE (19:26)
[2019-06-15] MEDS ORDERED: Haloperidol INJ IV/IM* 5 MG/ML AMP ONE (19:28)
[2019-06-15] MEDS ORDERED: Lorazepam PYXIS KEY ONE (19:29)
[2019-06-15] MEDS ORDERED: Ziprasidone IM INJ* 20 MG/ML VIAL IM ONE (19:35)
[2019-06-15] MEDS ORDERED: Ziprasidone IM INJ* 20 MG/ML VIAL ONE (19:41)
[2019-06-15] MEDS ORDERED: LORazepam INJ* 2 MG/ML 1 ML VIAL ONE (21:38)
[2019-06-16] MEDS ORDERED: chlorproMAZINE TAB* 100 MG PO SCH (09:00)
[2019-06-16] MEDS: Gabapentin CAP(*) 300 MG PO SCH ×2 (11:26→13:09)
[2019-06-16] MEDS: Venlafaxine EXT RELEASE CAP* 75 MG PO SCH (11:28)
[2019-06-16] MEDS: Acetaminophen TAB* 325 MG PO PRN (11:28)
[2019-06-16] MEDS: Lithium Carbonate TAB* 300 MG PO SCH ×2 (11:29→18:29)
[2019-06-16] MEDS: BuPROPion XL* 150 MG TAB.XL PO SCH (11:29)
[2019-06-16] MEDS: Nicotine* 4MG (FRUIT FLAVOR) GUM PO PRN (13:09)
--- NOTE | 2019-06-16 16:24 | PN ---
Subjective - Subjective Date of Service: 06/16/19 Service Type: [id number] Hosp care 35 min high complexity Subjective: Nursing Report: Patient was visible on unit, patient in locked seclusion overnight, demanding and yelling at peers and staff CC: "I am so mad at her Patient was seen and evaluated today. The patient reported she hates another peer on the unit, patient demanding that someone get her a spoon and yelling at them and became upset. Patient reported that she has no one and misses her Children. Patient threw apple pie across the room because she stated that it doesn't look right. She slept overnight and was interacting with select peers, she was wearing makeup. 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 Patient reported that she is tolerating medications without side effects. Patient is future orientated preferred to have Gabapentin increased to 800mg three times a day and would like it to be sent over to [facility]. Objective - General Observations Appearance: Neat Appears Stated Age: Yes Stature: Overweight Posture: Slumped Eye Contact: Average Behavior/Activity: Accelerated - Interaction Observations Attitude Towards Examiner: Demanding, Manipulative Stated Mood: Irritable Affect: Full Speech Pattern/Tone: Loud Volume Thought Process: Coherent, Goal Directed Perception: WNL Thought Content: WNL Hallucination Type: None Delusion Type: None - Cognitive Function Orientation: A&O x 4 Level of Consciousness: Awake - Medication Compliance Cooperative with Inpatient Medication Regimen: Yes - Group Participation Participates in Group Activities: No Assessment - Assessment Merits Inpatient Hospitalization: For Immediate Safety Inpatient DSM-V Dx: F33.2 Clinical Impression: 34 year old Female with history of Anti-social personality Disorder, Borderline Personality Disorder, Intermittent Explosive Disorder, Cocaine use disorder, Cannabis use disorder, and PTSD presented to the hospital with suicidal ideation and was admitted to the [facility] at [facility]. Plan - Plan Treatment Plan: Name: JARRELL CASTELLANOS Birthdate: 1985 [id number] #Q15 minute observation. # The patient requires psychiatric inpatient admission at this time to assure safety, receive treatment and work toward stabilization. # B-HCG was ordered and results are negative. # Use of 2 Anti Psychotics due to more than 3 failed trials of mono-therapy in the past. # Obtain collateral information once release is signed. # GEORGE program doesnt meet criteria # Collaboration with Glass Unloading Equipment Tender Mariluz Tijerina # Increased Gabapentin 800mg TID and [facility] notified of change 14 day supply provided # Called to Change effexor XR to effexor standard release at [facility] 14 day supply provided # Thorazine 50mg qam and 100mg at 6pm Tobacco use disorder: nicotine supplement offered and put in place. #Goals before discharge include: Tentative Discharge: 06/17/2019 Continued Medication Management: Continue Outpt Medication Medications: Current Medications Acetaminophen (Tylenol Tab*) 650 mg PO Q4H PRN PRN Reason: for pain; or Temp >101 F Last Admin: 06/16/19 11:28 Dose: 650 mg Al Hydrox/Mg Hydrox/Simethicone (Maalox Plus*) 30 ml PO Q4H PRN PRN Reason: INDIGESTION Albuterol (Ventolin Hfa Inhaler*) 2 puff INH Q4H PRN PRN Reason: WHEEZING Bupropion HCl (Wellbutrin Xl *) 150 mg PO DAILY [facility] Last Admin: 06/16/19 11:29 Dose: 150 mg Chlorpromazine HCl (Thorazine Tab*) 100 mg PO Q6H PRN PRN Reason: AGITATION Last Admin: 06/16/19 11:29 Dose: 100 mg Chlorpromazine HCl (Thorazine Tab*) 100 mg PO 1900 [facility] Last Admin: 06/15/19 18:45 Dose: 100 mg Diphenhydramine HCl (Benadryl Po*) 50 mg PO Q6H PRN PRN Reason: AGITATION Last Admin: 06/15/19 16:42 Dose: 50 mg Gabapentin (Neurontin Cap(*)) 800 mg PO 0900,1400,1900 [facility] [place] Carbonate ([place] Carbonate Tab*) 300 mg PO 0900,1900 [facility] Last Admin: 06/16/19 11:29 Dose: 300 mg Multi-Ingredient Mouthwash/Gargle (Biotene Dry Mouth Oral Rinse(Nf)) 15 ml MT FIVE TIMES DAILY PRN PRN Reason: DRY MOUTH Nicotine Polacrilex (Nicotine Gum*) 4 mg PO Q2H PRN PRN Reason: CRAVINGS Last Admin: 06/16/19 13:09 Dose: 4 mg Ondansetron HCl (Zofran Odt Tab*) 4 mg PO Q6H PRN PRN Reason: VOMITING Quetiapine Fumarate (Seroquel Tab*) 200 mg PO 1900 [facility] Last Admin: 06/15/19 18:45 Dose: 200 mg Simethicone (Mylicon Tab*) 80 mg PO Q6H PRN PRN Reason: INDIGESTION Venlafaxine HCl (Effexor Xr Cap*) 75 mg PO DAILY [facility]; Protocol Last Admin: 06/16/19 11:28 Dose: 75 mg - Discharge Plan Discharge Plan: Inpatient Hospitalization
[2019-06-16] MEDS: QUEtiapine TAB* 100 MG PO SCH (18:25)
[2019-06-16] MEDS: chlorproMAZINE TAB* 100 MG PO SCH (18:25)
[2019-06-16] MEDS: diPHENhydraMINE PO* 50 MG PO PRN (18:25)
[2019-06-16] MEDS: Gabapentin CAP(*) 400 MG PO SCH (18:26)
[2019-06-17] MEDS: Gabapentin CAP(*) 400 MG PO SCH (06:55)
[2019-06-17] MEDS: Venlafaxine EXT RELEASE CAP* 75 MG PO SCH (06:55)
[2019-06-17] MEDS: Acetaminophen TAB* 325 MG PO PRN (06:55)
[2019-06-17] MEDS: BuPROPion XL* 150 MG TAB.XL PO SCH (06:55)
[2019-06-17] MEDS: Lithium Carbonate TAB* 300 MG PO SCH (06:55)
[2019-06-17] MEDS: Nicotine* 4MG (FRUIT FLAVOR) GUM PO PRN (07:00)
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
== END 2019-06-17 09:25 | disposition home or self-care (01) | DRG 752 ==
LOC: ED 13:41 → BSU 06-12 11:24
PROVIDERS: ADMIT Psychiatry & Neurology Psychiatry; ATTEND Psychiatry & Neurology Psychiatry
PROC: GZHZZZZ Group Psychotherapy (ICD-10-PCS; principal; 2019-06-15)
DX: F60.2 Antisocial personality disorder (principal); R45.851 Suicidal ideations; F60.3 Borderline personality disorder; F43.10 Post-traumatic stress disorder, unspecified; F17.210 Nicotine dependence, cigarettes, uncomplicated; J45.909 Unspecified asthma, uncomplicated; F41.0 Panic disorder [episodic paroxysmal anxiety]; Z62.810 Personal history of physical and sexual abuse in childhood; F14.90 Cocaine use, unspecified, uncomplicated; F12.90 Cannabis use, unspecified, uncomplicated; F32.9 Major depressive disorder, single episode, unspecified; F63.81 Intermittent explosive disorder; Z76.5 Malingerer [conscious simulation]; Z91.5 Personal history of self-harm; Z88.8 Allergy status to other drugs, medicaments and biological substances; Z68.35 Body mass index [BMI] 35.0-35.9, adult; Z91.018 Allergy to other foods
CPT/HCPCS: 36415; 80053; 80178; 80307; 80320; 80329; 81003; 81015; 84443; 84702; 85025; 87077; 87086; 87186; 90853; 99222; 99231; 99233; 99238; 99285; A9270-GY; G0480; J1200; J1630; J2060; J3486

== ENCOUNTER 2019-08-09 22:24 | Emergency (ER) | payer SELFPAY ==
[2019-08-09 22:48] LABS: ABS Basophils 0.1 10^3/ul (0-0.2); ABS Eosinophils 0.5 10^3/ul (0-0.6); ABS Lymphocytes 2.5 10^3/ul (1.0-4.8); ABS Monocytes 0.6 10^3/ul (0-0.8); ABS Neutrophils 3.9 10^3/ul (1.5-7.7); Eosinophil % 6.4 %; Hematocrit 43 % (35-47); Lymphocyte % 33.3 %; Mean Corpuscular HGB Conc 35 g/dL (31-36); Mean Corpuscular Hemoglobin 30 pg (27-31); Mean Corpuscular Volume 87 fL (80-97); Mean Platelet Volume 8.1 fL (7.4-10.4); Nucleated Red Blood Cells % 0.1; Platelet Count 247 10^3/uL (150-450); Red Blood Count 4.98 10^6 /uL (3.70-4.87); Red Cell Distribution Width 14 % (10-15); White Blood Count 7.5 10^3/uL (3.5-10.8)
[2019-08-09 22:54] LABS: Urine Appearance Cloudy; Urine Bilirubin Negative (Negative); Urine Blood Negative (Negative); Urine Color Yellow; Urine Glucose Negative (Negative); Urine Ketones Negative (Negative); Urine Nitrite Negative (Negative); Urine Protein Negative (Negative); Urine Specific Gravity 1.021 (1.010-1.030); Urine Urobilinogen Negative (Negative)
--- NOTE | 2019-08-09 22:54 | ED ---
Psychiatric Complaint - HPI Summary HPI Summary: Patient is a 34 y/o F presenting to [facility] via EMS for [place]. Patient reports that her psychiatric state has deteriorated over the past few months. She states that "I have thoughts of doing weird, crazy shit" and thoughts of harming others. Patient states that she would prefer to talk to the [facility] about her psychiatric issues as she does not want to "spill my guts twice". Patient is on gabapentin. PMHx of anxiety noted. PSHx of wrist surgery, x4, tonsillectomy, liver biopsy. FMHx is unknown as patient states that she is adopted. She is a current smoker but denies alcohol and substance usage in the room. Home medications and allergies are reviewed. No fever as vitals show temp of 97.7 F. - History Of Current Complaint Chief Complaint: EDPsychosocial Time Seen by Provider: 08/09/19 22:26 Hx Obtained From: Patient Onset/Duration: Lasting Weeks, Still Present, Worse Since Timing: Weeks Severity Currently: None - pain denied on triage Has Homicidal: Reports: Thoughts - Allergies/Home Medications Allergies/Adverse Reactions: Allergies Allergy/AdvReac Type Severity Reaction Status Date / Time tomato Allergy Severe Anaphylatic Verified 08/09/19 22:33 Shock haloperidol [From Haldol] Allergy Anaphylatic Verified 08/09/19 22:33 Shock lamotrigine [From Lamictal] Allergy Swelling Verified 08/09/19 22:33 Of Face,Lips,& Throat adhesive tape AdvReac Rash And Verified 08/09/19 22:33 Itching Home Medications: Home Medications Ondansetron TAB* [Zofran 4 MG Tab*] 4 mg PO Q8HR PRN #12 tab 02/19/19 [Rx Confirmed 06/11/19] Ibuprofen 800 mg PO Q8HR 05/23/19 [History Confirmed 06/11/19] Oxycodone HCl 5 mg PO Q4HR 05/23/19 [History Confirmed 06/11/19] buPROPion HCl [Wellbutrin Sr] 150 mg PO QAM 05/23/19 [History Confirmed 06/11/19 ] chlorproMAZINE TAB* [Thorazine 100 MG TAB*] 100 mg PO DAILY 05/23/19 [History Confirmed 06/11/19] Albuterol HFA INHALER* [Ventolin HFA Inhaler*] 1 - 2 puff INH Q4H PRN #1 mdi 02/15 [Rx Confirmed 06/11/19] Bupropion XL* [Wellbutrin XL *] 150 mg PO DAILY #14 tab 06/08/19 [Rx Confirmed 06/11/19] Gabapentin CAP(*) [Neurontin 300 CAP(*)] 600 mg PO TID #60 cap 06/08/19 [Rx Confirmed 06/11/19] Milo Carbonate TAB* 300 mg PO BID #30 tab 06/08/19 [Rx Confirmed 06/11/19] QUEtiapine TAB* [Seroquel 100 MG *] 200 mg PO BEDTIME #30 tab 06/08/19 [Rx Confirmed 06/11/19] Venlafaxine EXT RELEASE CAP* [Effexor Xr CAP*] 75 mg PO DAILY #14 cap.sr [Rx Confirmed 06/11/19] chlorproMAZINE TAB* [Thorazine TAB*] 50 mg PO BID #30 tab 06/08/19 [Rx Confirmed 06/11/19] Albuterol HFA INHALER* [Ventolin HFA Inhaler*] 2 puff INH Q4H PRN mdi 06/16/19 [Rx] Bupropion XL* [Wellbutrin XL *] 150 mg PO DAILY tab 06/16/19 [Rx] Gabapentin CAP(*) [Neurontin 400 mg CAP(*)] 800 mg PO 0900,1400,1900 #0 cap [Rx] Milo Carbonate TAB* 300 mg PO 0900,1900 tab 06/16/19 [Rx] QUEtiapine TAB* [Seroquel 100 MG *] 200 mg PO 1900 tab 06/16/19 [Rx] Venlafaxine EXT RELEASE CAP* [Effexor Xr CAP*] 75 mg PO DAILY cap.sr 06/16/19 [ Rx] chlorproMAZINE TAB* [Thorazine 100 MG TAB*] 100 mg PO 1900 tab 06/16/19 [Rx] PMH/Surg Hx/FS Hx/Imm Hx Endocrine/Hematology History: Denies: Hx Diabetes Cardiovascular History: Denies: Hx Hypertension Respiratory History: Reports: Hx Asthma Denies: Hx Chronic Obstructive Pulmonary Disease (COPD) History: Denies: Hx Dialysis Sensory History: Reports: Hx Contacts or Glasses Denies: Hx Deafness, Hx Hearing Aid Opthamlomology History: Reports: Hx Contacts or Glasses Neurological History: Denies: Hx Dementia Psychiatric History: Reports: Hx Depression, Hx Post Traumatic Stress Disorder, Hx Inpatient Treatment, Hx Suicide Attempt, Hx Substance Abuse - Surgical History Surgery Procedure, Year, and Place: 2 Ceasarean Sections. Cholecystectomy. - Immunization History Date of Influenza Vaccine: none Infectious Disease History: No Infectious Disease History: Denies: Traveled Outside the [place] in Last 30 Days - Family History Known Family History: Positive: Unknown - adopted - Social History Alcohol Use: None Alcohol Amount: sober Hx Substance Use: Yes Substance Use Type: Reports: None Substance Use Comment - Amount & Last Used: today Hx Tobacco Use: Yes Smoking Status (MU): Current Every Day Smoker Type: Cigarettes - Additional Comments History Additional Comments: PMHx of anxiety noted. PSHx of wrist surgery, x4, tonsillectomy, liver biopsy. FMHx is unknown as patient states that she is adopted. She is a current smoker but denies alcohol and substance usage in the room. Review of Systems - ROS Summary Review of Systems Summary: Home Medications Medication Instructions Recorded Confirmed Type Ondansetron TAB* [Zofran 4 MG Tab*] 4 mg PO Q8HR PRN #12 tab 02/19/19 06/11/19 Rx Ibuprofen 800 mg PO Q8HR 05/23/19 06/11/19 History Oxycodone HCl 5 mg PO Q4HR 05/23/19 06/11/19 History buPROPion HCl [Wellbutrin Sr] 150 mg PO QAM 05/23/19 06/11/19 History chlorproMAZINE TAB* [Thorazine 100 100 mg PO DAILY 05/23/19 06/11/19 History MG TAB*] Albuterol HFA INHALER* [Ventolin 1 - 2 puff INH Q4H PRN #1 mdi 06/08/19 Rx HFA Inhaler*] Bupropion XL* [Wellbutrin XL *] 150 mg PO DAILY #14 tab 06/08/19 06/11/19 Rx Gabapentin CAP(*) [Neurontin 300 600 mg PO TID #60 cap 06/08/19 06/11/19 Rx CAP(*)] Milo Carbonate TAB* 300 mg PO BID #30 tab 06/08/19 06/11/19 Rx QUEtiapine TAB* [Seroquel 100 MG *] 200 mg PO BEDTIME #30 tab 06/08/19 06/11/19 Rx Venlafaxine EXT RELEASE CAP* 75 mg PO DAILY #14 cap.sr 06/08/19 06/11/19 Rx [Effexor Xr CAP*] chlorproMAZINE TAB* [Thorazine 50 mg PO BID #30 tab 06/08/19 06/11/19 Rx TAB*] Albuterol HFA INHALER* [Ventolin 2 puff INH Q4H PRN mdi 06/16/19 Rx HFA Inhaler*] Bupropion XL* [Wellbutrin XL *] 150 mg PO DAILY tab 06/16/19 Rx Gabapentin CAP(*) [Neurontin 400 800 mg PO 0900,1400,1900 #0 cap 06/16/19 Rx mg CAP(*)] Milo Carbonate TAB* 300 mg PO 0900,1900 tab 06/16/19 Rx QUEtiapine TAB* [Seroquel 100 MG *] 200 mg PO 1900 tab 06/16/19 Rx Venlafaxine EXT RELEASE CAP* 75 mg PO DAILY cap.sr 06/16/19 Rx [Effexor Xr CAP*] chlorproMAZINE TAB* [Thorazine 100 100 mg PO 1900 tab 06/16/19 Rx MG TAB*] Negative: Fever - No fever as vitals show temp of 97.7 F. Positive: Other - positive - HI All Other Systems Reviewed And Are Negative: Yes Physical Exam - Summary Physical Exam Summary: General: Well-developed, Well-nourished female. No acute distress. HEENT: Normocephalic, Atraumatic. Eyes: Conjuctiva normal, PERRL. Oropharynx: Clear, mucous membranes moist, (-) exudates. Neck: Soft, FROM, (-) lymphadenopathy, (-) thyromegaly, (-) JVD. Cardiovascular: Normal sinus rhythm, (-) murmur. Lungs: Clear to auscultation bilaterally (-) wheezes, (-) rales, (-) rhonchi. Abdomen: Soft, non-tender, non-distended, (-) organomegaly, normal bowel sounds. Back: (-) CVA tenderness Extremities: No edema. Skin: Warm, dry, (-) rash. Neuro: Alert and oriented x3, moves all extremities equally. No ataxia. No gait disturbance. No sensory deficit. Normal strength, normal sensation. Psychiatric: Sad affect. Triage Information Reviewed: Yes Vital Signs On Initial Exam: Initial Vitals Temp Pulse Resp BP Pulse Ox 97.7 F 85 17 154/103 98 08/09/19 22:27 08/09/19 22:27 08/09/19 22:27 08/09/19 22:27 08/09/19 22:27 Vital Signs Reviewed: Yes Procedures - Sedation Patient Received Moderate/Deep Sedation with Procedure: No Diagnostics - Vital Signs Vital Signs Temp Pulse Resp BP Pulse Ox 08/09/19 22:27 97.7 F 85 17 154/103 98 - Laboratory Result Diagrams: 08/09/19 22:41 08/09/19 22:41 Lab Statement: Any lab studies that have been ordered have been reviewed, and results considered in the medical decision making process. - EKG 0022 Summary of EKG Findings: . 2233 Summary of EKG Findings: . .. Summary of EKG Findings: .. Re-Evaluation - Re-Evaluation First Eval Re-Evaluation Time: 22:54 Comment: Patient medically cleared for [facility]. Second Eval Re-Evaluation Time: 00:08 Comment: [facility] states that the patient had informed her that she came to the ED primarily for a medications refill. She notes that she has been off of her meds for the past few days. Patient is not willing to participate in evaluation if she cannot get her medications prescribed in the ED and be discharged to home Course/Dx - Course Course Of Treatment: 34-year-old female presents from home for mental health evaluation. She states that she is depressed and this is worsened over the last couple months. Has had thoughts about harming other people so that they will harm her. Patient is very reluctant to talk to me. Would like to speak with mental health director of compliance. She denies any alcohol or drug use today. Physical exam shows no significant abnormalities. Laboratories demonstrates slightly elevated glucose. Patient met withmental health director of compliance. She demands refill of her medications. States she ran out 2 days ago. She refuses admission to the behavioral science unit. When patient is informed that we do not do refills of psychiatric medications in the emergency room she becomes very agitated. Refuses to finish mental health evaluation. States she wants to go home. Is screaming and swearing and calling staff names as she was escorted out. Follow-up as needed. - Differential Dx/Clinical Impression Provider Diagnosis: Anxiety Discharge ED - Sign-Out/Discharge Documenting (check all that apply): Patient Departure - discharge - Discharge Plan Condition: Stable Disposition: HOME Patient Education Materials: Anxiety (ED) Referrals: Care [facility] [Outside] - 3 Days Additional Instructions: PLEASE RETURN TO ED FOR ANY NEW OR WORSENING SYMPTOMS. PLEASE FOLLOWUP WITH YOUR PRIMARY CARE PHYSICIAN WITHIN THREE DAYS. - Billing Disposition and Condition Condition: STABLE Disposition: Home - Attestation Statements Document Initiated by Caydenibe: Yes Documenting Scribe: GINGER CALHOUN Provider For Whom Caydenibe is Documenting (Include Credential): ARSALAN BARNES MD Scribe Attestation: GINGER Avila, scribed for ARSALAN BARNES MD on 08/10/19 at 0057. Scribe Documentation Reviewed: Yes Provider Attestation: The documentation as recorded by the GINGER torres accurately reflects the service I personally performed and the decisions made by me, ARSALAN BARNES MD Status of Scribe Document: Viewed
[2019-08-09 23:04] LABS: ALT 20 U/L (7-52); AST 17 U/L (13-39); Albumin 4.1 g/dL (3.2-5.2); Albumin/Globulin Ratio 1.3 (1-3); Alkaline Phosphatase 79 U/L (34-104); Anion Gap 7 mmol/L (2-11); BUN/Creatinine Ratio 10.7 (8-20); Blood Urea Nitrogen 8 mg/dL (6-24); CO2 Carbon Dioxide 26 mmol/L (22-32); Calcium 9.5 mg/dL (8.6-10.3); Chloride 105 mmol/L (101-111); EGFR African American 106.4 (>60); EGFR Non-African American 87.9 (>60); Globulin 3.2 g/dL (2-4); Glucose 147 mg/dL (70-100); Potassium 3.5 mmol/L (3.5-5.0); Sodium 138 mmol/L (135-145); Total Protein 7.3 g/dL (6.4-8.9)
[2019-08-09 23:11] LABS: HCG Pregnancy < 0.60 mIU/mL
[2019-08-09 23:14] LABS: Urine Benzodiazepine Screen None Detected (None Detect); Urine Opiates Screen None Detected (None Detect)
[2019-08-09 23:54] LABS: Acetaminophen < 15 mcg/mL; Alcohol < 10 mg/dL (<10); Salicylate < 2.50 mg/dL (<30)
[2019-08-10 00:10] LABS: TSH (Thyroid Stimulating Horm) 0.98 mcIU/mL (0.34-5.60)
[2019-08-10 00:34] VITALS: BP 0/0
== END 2019-08-10 00:21 | disposition home or self-care (01) ==
LOC: ED 22:24
DX: F41.9 Anxiety disorder, unspecified (principal); F32.9 Major depressive disorder, single episode, unspecified; F43.10 Post-traumatic stress disorder, unspecified; Z79.899 Other long term (current) drug therapy; F17.210 Nicotine dependence, cigarettes, uncomplicated
CPT/HCPCS: 36415; 80053; 80307; 80320; 80329; 81003; 84443; 84702; 85025; 99285; G0480